=== PATIENT | female | born 1965 | race Caucasian/White ===

== ENCOUNTER 2016-09-15 18:59 | Emergency (ER) | payer BC ==
[2016-09-15] MEDS ORDERED: NITROGLYCERIN 0.4 MG TAB SL PRN (19:04)
[2016-09-15] MEDS ORDERED: ASPIRIN 81 MG CHEWABLE CTB PO STA (19:04)
[2016-09-15] MEDS ORDERED: MORPHINE SULFATE 10 MG/ML SOL IV PRN (19:04)
[2016-09-15] MEDS ORDERED: ALUMINUM/MAGNESIUM 30 ML SUS PO ONE (19:13)
[2016-09-15] MEDS ORDERED: LIDOCAINE HCL 2% (VISCOUS) 20 ML SOL PO ONE (19:13)
[2016-09-15] MEDS ORDERED: ALUMINUM/MAGNESIUM 30 ML SUS ONE (19:14)
[2016-09-15] MEDS ORDERED: METOCLOPRAMIDE HYDROCHLORIDE 5 MG/ML SOL IV ONE (19:15)
[2016-09-15] MEDS ORDERED: LIDOCAINE HCL 2% (VISCOUS) 20 ML SOL ONE (19:15)
[2016-09-15] MEDS ORDERED: METOCLOPRAMIDE HYDROCHLORIDE 5 MG/ML SOL ONE (19:16)
[2016-09-15] MEDS: SODIUM CHLORIDE 0.9% FLUSH 10 ML SOL IV PRN ×2 (19:23→20:05)
[2016-09-15 19:35] LABS: CALCIUM 8.8 mg/dl (8.5-10.1); POTASSIUM 3.2 mMol/L (3.5-5.1)
[2016-09-15 19:37] LABS: BASOPHILS % (AUTO) 1 % (0-3); EOSINOPHILS % (AUTO) 2 % (0-9); HEMATOCRIT 36 % (35-47); MEAN CORPUSCULAR HGB CONC 34.2 gm/dl (32.0-36.0); MEAN CORPUSCULAR VOLUME 83 fL (81-99); MONOCYTES % (AUTO) 8.1 % (0-12); NEUTROPHILS % (AUTO) 38.8 % (37-80)
[2016-09-15] MEDS ORDERED: HYDROMORPHONE HCL 2 MG/ML 1 ML SOL IV ONE (19:55)
[2016-09-15] MEDS ORDERED: DIAZEPAM 5MG/ML SOL IV ONE (19:55)
[2016-09-15] MEDS ORDERED: DIAZEPAM 5MG/ML SOL ONE (19:58)
[2016-09-15] MEDS ORDERED: HYDROMORPHONE HCL 2 MG/ML 1 ML SOL ONE (19:58)
[2016-09-15] MEDS ORDERED: POTASSIUM CHLORIDE 10 MEQ TER PO ONE (19:58)
[2016-09-15] MEDS ORDERED: ONDANSETRON HCL 4 MG/2 ML SOL IV ONE (20:00)
[2016-09-15] MEDS ORDERED: ONDANSETRON HCL 4 MG/2 ML SOL ONE (20:02)
[2016-09-15 20:40] VITALS: BP 136/101; PULSE 61; RESP 15; TEMP 99.4; O2SAT 98
[2016-09-15] MEDS ORDERED: POTASSIUM CHLORIDE 10 MEQ TER ONE (20:45)
== END 2016-09-15 21:15 | disposition home or self-care (01) ==
LOC: ED 18:59
DX: K80.20 Calculus of gallbladder without cholecystitis without obstruction (principal)
CPT/HCPCS: 99285 ×3; 71010; 80048; 82550; 84484; 85025; 85610; 85730; 93005; J1170; J2405; J2765; J3360; 36415; 96374; 96375; 99284

== ENCOUNTER 2016-09-16 09:32 | Emergency (ER) | payer BC ==
[2016-09-16] MEDS ORDERED: SODIUM CHLORIDE 0.9% FLUSH 10 ML SOL IV PRN (09:51)
[2016-09-16] MEDS ORDERED: HYDROMORPHONE HCL 2 MG/ML 1 ML SOL IV ONE ×2 (09:51→11:30)
[2016-09-16] MEDS ORDERED: HYDROMORPHONE HCL 2 MG/ML 1 ML SOL ONE ×2 (09:53→11:27)
[2016-09-16] MEDS ORDERED: ONDANSETRON HCL 4 MG/2 ML SOL IV ONE ×2 (10:52→11:30)
[2016-09-16] MEDS ORDERED: ONDANSETRON HCL 4 MG/2 ML SOL ONE ×2 (10:53→11:27)
[2016-09-16] MEDS ORDERED: LABETALOL HYDROCHLORIDE 5 MG/ML SOL IV ONE ×2 (11:35→11:40)
[2016-09-16 13:14] VITALS: BP 148/85; PULSE 62; RESP 14; TEMP 97.8; O2SAT 96
== END 2016-09-16 12:34 | disposition home or self-care (01) ==
LOC: ED 09:32
DX: K80.20 Calculus of gallbladder without cholecystitis without obstruction (principal)
CPT/HCPCS: 99285 ×3; 84484; 93005; J1170 ×2; J2405 ×2; Q9967; 36415; 74177; 96374; 96375; 99284